=== PATIENT | female | born 1995 | race African-American/Black ===

== ENCOUNTER 2017-07-08 21:42 | Emergency (ER) | payer MEDICAID ==
[2017-07-08 22:17] LABS: BASOPHIL % 0.5 % (0-2); PLATELET COUNT 220 x10^3mcL (130-400)
[2017-07-08 22:20] LABS: RED CELL DISTRIBUTION WIDTH 16.8 % (11.5-14.5)
[2017-07-08 22:22] LABS: UA SPECIFIC GRAVITY 1.015 (1.005-1.035); microscopic required? YES
[2017-07-08 22:24] LABS: urine erythrocyte 3+ (NEGATIVE)
[2017-07-09 01:42] VITALS: BP 131/83
== END 2017-07-09 01:42 | disposition home or self-care (01) ==
LOC: ED 21:42
PROVIDERS: Specialist
DX: O36.4XX0 Maternal care for intrauterine death, not applicable or unspecified (principal); Z3A.12 12 weeks gestation of pregnancy; Z87.42 Personal history of other diseases of the female genital tract; Z98.890 Other specified postprocedural states
CPT/HCPCS: 36415; Q0092